=== PATIENT | female | born 1950 | race Caucasian/White ===

== ENCOUNTER 2019-06-02 09:04 | Emergency (ER) | payer MEDICARE, OTHER ==
[~2019-06-02] VITALS: Ht 162.6 cm; Wt 72.6 kg
[2019-06-02] MEDS ORDERED: AUGMENTIN 875-1 EACH PO (09:18)
[2019-06-02] MEDS ORDERED: ASA81BEC PO (09:19)
[2019-06-02 09:29] LABS: URINE BILIRUBIN NEGATIVE (Negative); URINE BLOOD 3+ (Negative); URINE CLARITY CLEAR; URINE COLOR YELLOW; URINE GLUCOSE-RANDOM NEGATIVE (Negative); URINE LEUKOCYTES-REFLEX NEGATIVE (Negative); URINE NITRITE-REFLEX NEGATIVE (Negative); URINE PROTEIN 1+ (Negative); URINE SPECIFIC GRAVITY >= 1.030 (1.005-1.030); URINE UROBILINOGEN 0.2 E.U./dl (0.2-1.0)
[2019-06-02 09:30] LABS: URINE KETONES 3+ (Negative)
[2019-06-02 09:30] LABS: HEMATOCRIT 38.3 % (37.0-47.0); HEMOGLOBIN 13.3 gm/dL (12.0-15.0); MCH 29.3 pg (26.0-34.0); MCHC 34.6 g/dL (28.0-37.0); MCV 84.6 fL (80.0-100.0); MPV 7.4 fl. (7.2-11.1); NUCLEATED RBCS 0 /100WBC; PLATELET COUNT* 277 thou/uL (150-400); RBC 4.53 mil/uL (4.20-5.00); RDW-CV 14.2 % (10.5-14.5); WBC 7.7 thou/uL (4.0-11.0)
[2019-06-02 09:36] LABS: MUCUS 0-3 Light strn/LPF (None Seen); SQUAMOUS 0-3 Few /LPF (0-3)
[2019-06-02 09:37] LABS: URINE RBC >20 Many /HPF (0-2)
[2019-06-02 09:37] LABS: CREATININE 0.8 mg/dL (0.6-1.3); POTASSIUM 3.4 mmol/L (3.5-5.1)
[2019-06-02 09:41] LABS: BACTERIA-REFLEX None Seen /HPF (None Seen); URINE WBC-REFLEX 0-5 Rare /HPF (0-5)
[2019-06-02 09:41] LABS: ALBUMIN 3.7 g/dL (3.4-5.0); TOTAL BILIRUBIN 0.5 mg/dL (<0.1-1.0); TOTAL PROTEIN 7.6 g/dL (6.4-8.2)
[2019-06-02 09:42] LABS: CASTS None Seen /LPF (None Seen); CRYSTALS None Seen /LPF (None Seen)
[2019-06-02 09:59] LABS: ABSOLUTE LYMPHOCYTES 0.7 thou/uL (0.8-5.3); LARGE PLATELETS RARE; PLATELET ESTIMATE ADEQUATE
[2019-06-02] MEDS ORDERED: ZOFRAN ODT4 MG SUBLING (10:20)
[2019-06-02 11:17] VITALS: BP 138/54
--- NOTE | 2019-06-03 14:26 | EKG ---
[place] [address] ELECTROCARDIOGRAM REPORT Name: ADIN ORR Ronnell Room: [facility]#: [id number] Admission: 06/02/19 Attend Phys: Discharge: 06/02/19 Date of : 46 Report #: [id number] THIS REPORT FOR: //name// [facility] ED Test Date: 2019-06-02 Test Time: 09:26:02 Pat Name: ADIN ORR Department: Room: Gender: F [employer] Property [employer]: : [id number] Requested By: Francisco Chase Order Number: [id number] MD: Talha Greene Measurements Intervals [place] Rate: 83 P: 58 MS: 165 QRS: -28 QRSD: 99 T: 25 QT: 384 QTc: 452 Interpretive Statements Sinus rhythm Probable left atrial enlargement Borderline left axis deviation Abnormal R-wave progression, early transition No previous ECG available for comparison Electronically Signed On 06-03-2019 14:26:08 MEDICAL SCRIBE by Talha Greene [email or web address] <ELECTRONICALLY SIGNED> By: Talha Greene MD, [facility] 06/03/19 1426 5 5 Talha Greene MD, FACC /EPI
== END 2019-06-02 11:00 | disposition home or self-care (01) ==
LOC: M.ERS 09:04
PROVIDERS: Family Medicine
DX: J32.9 Chronic sinusitis, unspecified (principal); R11.2 Nausea with vomiting, unspecified; E78.00 Pure hypercholesterolemia, unspecified; Z88.6 Allergy status to analgesic agent